=== PATIENT | female | born 1980 | race African-American/Black ===

== ENCOUNTER 2019-01-27 14:44 | Emergency (ER) | payer SELFPAY ==
[~2019-01-27] VITALS: Ht 170.2 cm; Wt 109.1 kg
[~2019-01-27 14:44] MED LIST: AMOXICILLIN 50500 MG PO; BIRTH CONTROL
[2019-01-27 14:45] VITALS: TEMP 98.3
[2019-01-27] MEDS ORDERED: ZESTRIL 10MG10 MG PO (14:52)
[2019-01-27 15:06] LABS: BASO # 0.1 (0.0-0.2); BASO % 0.7 % (0.0-2.0); EOS # 0.1 (0.0-0.7); GRAN # 4.2 (1.4-6.5); GRAN % 50.9 % (42.2-75.2); HEMATOCRIT 40.2 % (37.0-47.0); HEMOGLOBIN 13.2 g/dl (12.5-16.0); LYMPH # 3.1 (1.2-3.4); LYMPH % 37.4 % (20.0-51.0); MEAN CELL VOLUME 87 fl (80.0-100.0); MEAN CORPUSCULAR HEMOGLOBIN 29 pg (27.0-31.0); MEAN CORPUSCULAR HGB CONC 33 g/dl (33.0-37.0); MEAN PLATELET VOLUME 10.9 fl (7.4-10.4); MONO # 0.8 (0.1-0.6); MONO % 9.8 % (1.7-9.3); PLATELET COUNT 203 K/mm3 (130-400); REDCELL DISTRIBUTION WIDTH-CV 13.2 % (11.5-14.5)
[2019-01-27 15:12] LABS: ALANINE AMINOTRANSFERASE 45 U/L (9-52); ALBUMIN 4.2 gm/dL (3.5-5.0); ALKALINE PHOSPHATASE 94 U/L (50-136); ANION GAP 10 mmol/L (7-16); AST,SGOT 79 U/L (15-37); BILIRUBIN,TOTAL 0.6 mg/dL (0.0-1.0); BLOOD UREA NITROGEN 10 mg/dL (7-17); CALCIUM 9.5 mg/dL (8.4-10.2); CARBON DIOXIDE 25 mmol/L (22-30); CHLORIDE 104 mmol/L (98-107); CREATININE, serum 0.88 (0.52-1.25); GLUCOSE 115 mg/dL (74-106); POTASSIUM 3.6 mmol/L (3.4-5.0); SODIUM 139 mmol/L (137-145); TOTAL PROTEIN 7.7 gm/dL (6.4-8.2)
[2019-01-27 15:24] LABS: TROPONIN-I < 0.012 ng/mL (0.000-0.035)
[2019-01-27 15:42] LABS: TSH w REFLEX 0.015 uIU/mL (0.465-4.680)
[2019-01-27 15:56] LABS: COLLECTION METHOD CLEAN CATCH
[2019-01-27 16:03] LABS: PH 6 (5-8); URINE APPEARANCE Clear; URINE BACTERIA None Seen /hpf; URINE BILIRUBIN Negative (NEGATIVE); URINE BLOOD 2+ (NEGATIVE); URINE COLOR Yellow; URINE GLUCOSE Negative (NEGATIVE); URINE KETONE Negative (NEGATIVE); URINE LEUKOCYTE ESTERASE Negative (NEGATIVE); URINE NITRATE Negative (NEGATIVE); URINE PROTEIN(semi-quant) Negative (NEGATIVE)
[2019-01-27] MEDS ORDERED: TOPROL XL 25MG25 MG PO (16:39)
[2019-01-27] MEDS ORDERED: ANTIVERT 25MG25 MG PO (16:39)
[2019-01-27 17:03] VITALS: BP 154/70; PULSE 105
== END 2019-01-27 17:05 | disposition home or self-care (01) ==
LOC: COL.ER 14:44
PROVIDERS: Emergency Medicine
DX: I10 Essential (primary) hypertension (principal); R00.0 Tachycardia, unspecified
CPT/HCPCS: J3360; J7030